=== PATIENT | male | born 1965 | race Caucasian/White ===

== ENCOUNTER 2018-11-21 05:05 | Emergency (ER) | payer MEDICAID, OTHER ==
[2018-11-21] MEDS: DIPHENHYDRAMINE 25 MG CAP PO (05:56)
[2018-11-21] MEDS: TRIMETHOPRIM/SULFAMETHOX (DS) TAB PO (05:56)
[2018-11-21] MEDS: DEXAMETHASONE 10 MG/ML 1 ML INJ IM (05:56)
[2018-11-21] MEDS: CEPHALEXIN 500 MG CAP PO (05:56)
[2018-11-21] MEDS: IBUPROFEN 800 MG TAB PO (05:56)
== END 2018-11-21 06:10 | disposition home or self-care (01) ==
LOC: FTE 05:05
DX: S60.562A Insect bite (nonvenomous) of left hand, initial encounter (principal); L03.90 Cellulitis, unspecified; L08.9 Local infection of the skin and subcutaneous tissue, unspecified; W57.XXXA Bitten or stung by nonvenomous insect and other nonvenomous arthropods, initial encounter; Y92.9 Unspecified place or not applicable
CPT/HCPCS: 96372; 99284-25